=== PATIENT | male | born 1950 | race Caucasian/White ===

== ENCOUNTER 2017-03-26 05:44 | Day surgery (SDC) | payer MEDICARE, OTHER ==
[2017-03-26] MEDS ORDERED: Midazolam 1 MG/ML 2 ML SDV ONE (06:19)
[2017-03-26] MEDS ORDERED: fentaNYL 100 MCG/2 ML SDV ONE (06:19)
[2017-03-26] MEDS ORDERED: Sodium Chloride 0.9% 10 ML Syringe FLUSH PRN (06:24)
[2017-03-26] MEDS ORDERED: Dextrose 5%-0.45% NaCl 1,000 ML IV SCH (06:30)
[2017-03-26] MEDS ORDERED: fentaNYL 100 MCG/2 ML SDV IV ONE ×4 (07:04→14:43)
[2017-03-26] MEDS ORDERED: Midazolam 1 MG/ML 2 ML SDV IV ONE ×7 (07:05→14:43)
[2017-03-26 09:39] VITALS: BP 138/84
--- NOTE | 2017-03-26 10:45 | OR ---
DATE: 03/26/2017 PROCEDURE: Total colonoscopy. INSTRUMENT USED: [id number]-H180AL Olympus video colonoscope. PREMEDICATIONS: Fentanyl 125 mcg intravenous, Versed 4 mg intravenous. Nasal 2 L O2 cannula. The procedure was done under pulse oximetry, BP recording, and air sampling and monitoring. INDICATION: The patient with longstanding ulcerative colitis. Surveillance colonoscopic examination is done for detection of any polypoid lesions and removal, biopsies to be obtained for dysplasia and/or malignancy if indicated, endoscopic hemostasis therapy if needed. DESCRIPTION OF PROCEDURE: Initial rectal exam was unremarkable. Rigid anoscopy was normal. The colonoscope was passed with ease up to the ileocecal area, photographs were taken of the normal-appearing cecum, identified by landmarks of appendiceal orifice and double-bulged ileocecal folds. No bleeding was noted from any of the visualized areas at the commencement of the examination. No stricture. No vascular ectasia. No large isolated ulcerations seen. No evidence of friability, contact bleeding, or ulcerations in any of the visualized areas. No polyp or tumor mass identified. Probing the proximal sides of folds and flexures, using adequate distention and clearing of the stool material, withdrawal of the scope was made, cecum to rectum time over 6 minutes. No bleeding was noted from any of the visualized areas at the completion of examination. Photographs were taken of the rectum, sigmoid colon, transverse colon, as well as cecum. IMPRESSION: Ulcerative colitis. The patient tolerated the procedure well. [facility] /[id number]
== END 2017-03-26 09:25 | disposition home or self-care (01) ==
LOC: DL.ENDO 05:44
PROVIDERS: ATTEND Internal Medicine Gastroenterology
DX: K51.90 Ulcerative colitis, unspecified, without complications (principal); N40.0 Benign prostatic hyperplasia without lower urinary tract symptoms; I25.810 Atherosclerosis of coronary artery bypass graft(s) without angina pectoris; I10 Essential (primary) hypertension; E11.9 Type 2 diabetes mellitus without complications; J44.9 Chronic obstructive pulmonary disease, unspecified; K21.9 Gastro-esophageal reflux disease without esophagitis; F41.1 Generalized anxiety disorder; E78.5 Hyperlipidemia, unspecified; E66.9 Obesity, unspecified; Z68.25 Body mass index [BMI] 25.0-25.9, adult; Z98.890 Other specified postprocedural states; Z79.4 Long term (current) use of insulin; Z79.899 Other long term (current) drug therapy; G47.33 Obstructive sleep apnea (adult) (pediatric); Z79.2 Long term (current) use of antibiotics; D63.8 Anemia in other chronic diseases classified elsewhere
CPT/HCPCS: 45378; J2250; J3010; J7042

== ENCOUNTER 2024-10-09 12:20 | Emergency (ER) | payer MEDICARE, OTHER ==
[2024-10-09] MEDS ORDERED: Sodium Chloride 0.9% 10 ML Syringe FLUSH PRN (12:26)
[2024-10-09 12:39] LABS: BASOPHILS PERCENT AUTO 0.1 % (0.0-1.0); EOSINOPHILS PERCENT AUTO 1.1 % (1.0-3.0); HEMATOCRIT 36.9 % (40.0-54.0); HEMOGLOBIN 11.8 g/dL (14.0-18.0); LYMPHOCYTES PERCENT AUTO 13.2 % (20.5-50.1); MEAN CORPUSCULAR HEMOGLOBIN 28.5 pg (27.0-34.0); MEAN CORPUSCULAR VOLUME 89.1 fL (80-100); MONOCYTES PERCENT AUTO 7.6 % (2-8); PLATELET COUNT,PLT 182 10^3/uL (150-450); RED BLOOD CELL COUNT 4.14 10^6/uL (4.6-6.2); WHITE BLOOD CELL COUNT,WBC 10.9 10^3/uL (5.0-10.0)
[2024-10-09] MEDS: Iopamidol 755 Mg/ML 100 ML Bottle IVPUSH ONE (12:41)
[2024-10-09 12:54] LABS: INR 1.9 (0.9-1.2); PROTHROMBIN TIME 19.3 SEC (9.0-12.0)
[2024-10-09 12:57] LABS: ALANINE AMINOTRANSFERASE,ALT 14 U/L (16-63); ALBUMIN 3.3 g/dL (3.4-5.0); ALKALINE PHOSPHATASE 105 U/L (46-116); ANION GAP 13.3 mEq/L (7-13); ASPARTATE AMNIOTRANSFERASE,AST 13 U/L (15-37); BILIRUBIN TOTAL 0.5 mg/dL (0.2-1.0); BLOOD UREA NITROGEN,BUN 27 mg/dL (7-18); BUN/CREATININE RATIO 16.9 (No establ ref range); C-REACTIVE PROTEIN 1.85 ng/dL (<=0.50); CALCIUM 8.9 mg/dL (8.5-10.1); CARBON DIOXIDE,CO2 28 mmol/L (21-32); CHLORIDE,CL 100 mmol/L (98-107); GLUCOSE RANDOM 208 mg/dL (70-99); POTASSIUM,K 4.3 mmol/L (3.5-5.1); PROTEIN TOTAL,TP 7.1 g/dL (6.4-8.2); SODIUM,NA 137 mmol/L (136-145)
[2024-10-09 12:58] LABS: A/G RATIO 0.87; ESTIMATED GFR 44 mL/min (>=60)
[2024-10-09] MEDS: Albuterol/Ipratropium 3.0-0.5 MG/3 ML Neb Soln NEB ONE (13:03)
[2024-10-09] MEDS: Sodium Chloride 0.9% 1,000 ML IV ONE (13:33)
[2024-10-09] MEDS: Ondansetron 4 MG/2 ML SDV IVPUSH ONE (13:33)
[2024-10-09 13:40] LABS: APPEARANCE,URINE CLEAR (CLEAR); BILIRUBIN,URINE NEGATIVE (NEGATIVE); COLOR,URINE YELLOW (YELLOW); GLUCOSE,URINE NEGATIVE (NEGATIVE); KETONES,URINE NEGATIVE (NEGATIVE); LEUKOCYTE ESTERASE,URINE NEGATIVE (NEGATIVE); NITRITE,URINE NEGATIVE (NEGATIVE); OCCULT BLOOD,URINE NEGATIVE (NEGATIVE); PROTEIN,URINE NEGATIVE (NEGATIVE); UROBILINOGEN,URINE 0.2 mg/dL (0.2-1.0)
[2024-10-09] MEDS: Dexamethasone 4 MG/ML SDV IVPUSH ONE (14:08)
[2024-10-09 14:25] VITALS: BP 140/80; PULSE 60
== END 2024-10-09 14:23 | disposition home or self-care (01) ==
LOC: DL.ED 12:20
DX: J44.1 Chronic obstructive pulmonary disease with (acute) exacerbation (principal); E86.0 Dehydration; I10 Essential (primary) hypertension; E78.00 Pure hypercholesterolemia, unspecified; K21.9 Gastro-esophageal reflux disease without esophagitis; E11.9 Type 2 diabetes mellitus without complications; E66.9 Obesity, unspecified; Z90.49 Acquired absence of other specified parts of digestive tract; Z79.899 Other long term (current) drug therapy; Z79.82 Long term (current) use of aspirin; Z79.4 Long term (current) use of insulin; Z88.2 Allergy status to sulfonamides; Z88.1 Allergy status to other antibiotic agents; Z88.8 Allergy status to other drugs, medicaments and biological substances
CPT/HCPCS: 70450; 70496; 70498; 71046; 80053; 81003; 82947; 83735; 85025; 85610; 86140; 87428; 93005; 94640; 96361; 96374; 96375; 99285; J1100; J2405; J7030; Q9967; J7620-GY